=== PATIENT | male | born 1975 | race African-American/Black ===

== ENCOUNTER 2021-06-06 05:34 | Emergency (ER) | payer MEDICAID ==
[~2021-06-06] VITALS: Ht 180.3 cm; Wt 96.0 kg
[2021-06-06 07:03] VITALS: BP 170/98
[2021-06-06] MEDS ORDERED: ACET-2708 MT (14:03)
== END 2021-06-06 07:06 | disposition home or self-care (01) ==
LOC: ER 05:34
DX: Z00.00 Encounter for general adult medical examination without abnormal findings (principal)
CPT/HCPCS: 93005; 99283

== ENCOUNTER 2021-06-06 11:24 | Emergency (ER) | payer MEDICAID ==
[~2021-06-06] VITALS: Ht 172.7 cm; Wt 98.0 kg
[2021-06-06] MEDS ORDERED: ACETAMINOPHEN 325MG TABLET PO ONE (12:00)
[2021-06-06 12:30] LABS: BASOPHILS % 0.8 % (0.0-2.0); EOSINOPHILS % 0.2 % (0.0-5.0); HEMATOCRIT. 39.9 % (42.0-52.0); HEMOGLOBIN. 14.1 g/dL (14.0-18.0); LYMPHOCYTES % 14.3 % (20.0-50.0); MEAN CORPUSCULAR HEMOGLOBIN 29.8 pg (28.0-32.0); MEAN CORPUSCULAR VOLUME 84.5 fL (80.0-94.0); MEAN PLATELET VOLUME 7.8 fl (7.4-10.4); MONOCYTES % 7.2 % (2.0-8.0); NEUTROPHILS % 77.5 % (40.0-76.0); PLATELET 232 x1000/uL (130-400); RED BLOOD CELL COUNT 4.72 mill/uL (4.7-6.1); RED CELL DISTRIBUTION WIDTH 14.4 % (11.6-14.6)
[2021-06-06 12:39] LABS: CHLORIDE 104 mEq/L (98-107)
[2021-06-06 13:07] LABS: INR 1.1; PROTHROMBIN TIME 11.6 sec (9.6-11.0)
[2021-06-06] MEDS ORDERED: ACET-2708 MT (14:03)
[2021-06-06 16:20] VITALS: BP 155/86
== END 2021-06-06 16:22 | disposition home or self-care (01) ==
LOC: ER 11:24
DX: R25.2 Cramp and spasm (principal); I10 Essential (primary) hypertension
CPT/HCPCS: 36415; 80053; 85025; 93970; 99284